=== PATIENT | female | born 1985 | race Caucasian/White ===

== ENCOUNTER 2017-12-30 09:27 | Outpatient (CLI) | payer BC, SELFPAY ==
[2017-12-30 14:36] LABS: Creatinine,Urine 51.46 mg/dL
[2017-12-30 14:37] LABS: Creatinine,24hr Ur 1.34 g/24hr (0.60-1.80); Total Volume 2600 ml
[2018-01-03 17:41] LABS: Cortisol, U 12 mcg/24 h (3.5-45); Cortisone, U 55 mcg/24 h (17-129); Urine Volume 2600 mL
== END 2017-12-30 09:47 ==
LOC: LBO 09:40 → LBN 09:59
PROVIDERS: PCP Internal Medicine; Visit Provider Internal Medicine Endocrinology, Diabetes & Metabolism
DX: R63.5 Abnormal weight gain (principal)
CPT/HCPCS: 82530; 83789; 81050; 82570